=== PATIENT | male | born 1955 | race Caucasian/White ===

== ENCOUNTER 2017-10-11 09:31 | Emergency (ER) | payer OTHER, BC ==
[~2017-10-11] VITALS: Ht 167.6 cm; Wt 69.5 kg
[~2017-10-11 09:31] MED LIST: MOTRIN800 MG PO; NORCO 7.5/321 TABLET PO
[2017-10-11 11:17] VITALS: BP 127/88
== END 2017-10-11 11:17 | disposition home or self-care (01) ==
LOC: EME 09:31
PROC: 0JQP0ZZ Repair Left Lower Leg Subcutaneous Tissue and Fascia, Open Approach (ICD-10-PCS; principal; 2017-10-11)
DX: S81.012A Laceration without foreign body, left knee, initial encounter (principal); W29.3XXA Contact with powered garden and outdoor hand tools and machinery, initial encounter
CPT/HCPCS: 99281; 99284